=== PATIENT | male | born 1935 | race African-American/Black ===

== ENCOUNTER 2022-05-28 10:13 | Inpatient (IN) | payer BC, MEDICARE ==
[~2022-05-28] VITALS: Ht 185.4 cm; Wt 82.1 kg
[~2022-05-28 10:13] MED LIST: AMLO10TA4 PO; ASPI-1497 PO; CLOP-31 PO; HYDR10TA34 PO; XALAO EACHEYE
[2022-05-28 13:21] LABS: BASOPHILS % 0.5 % (0.0-2.0); EOSINOPHILS % 0.2 % (0.0-5.0); HEMATOCRIT. 38.9 % (42.0-52.0); HEMOGLOBIN. 12.8 g/dL (14.0-18.0); LYMPHOCYTES % 26.2 % (20.0-50.0); MEAN CORPUSCULAR HEMOGLOBIN 30.3 pg (28.0-32.0); MEAN CORPUSCULAR VOLUME 92.1 fL (80.0-94.0); MEAN PLATELET VOLUME 7.8 fl (7.4-10.4); MONOCYTES % 11.7 % (2.0-8.0); NEUTROPHILS % 61.4 % (40.0-76.0); PLATELET 182 x1000/uL (130-400); RED BLOOD CELL COUNT 4.23 mill/uL (4.7-6.1); RED CELL DISTRIBUTION WIDTH 14.2 % (11.6-14.6)
[2022-05-28 15:47] LABS: CHLORIDE 105 mEq/L (98-107)
[2022-05-28] MEDS ORDERED: CALCIUM GLUCONATE 1GM PREMIX 50 ML IV NR (16:15)
[2022-05-28] MEDS ORDERED: CALCIUM GLUCONATE 100MG/ML 10ML VIAL IV ONE (16:15)
[2022-05-28] MEDS ORDERED: SODIUM BICARBONATE 8.4% 1 MEQ/ML 50ML SYR IV NR (16:15)
[2022-05-28] MEDS ORDERED: DEXTROSE 50% WATER 50ML SYRINGE IV NR (16:15)
[2022-05-28] MEDS ORDERED: INSULIN REGULAR (HUMULIN R) 300UNITS/3ML VIAL IV NR (16:15)
[2022-05-28] MEDS: ALBUTEROL (0.083%) 2.5MG/3ML NEB HHN SCH ×2 (17:35→18:47)
[2022-05-28 18:52] LABS: CHLORIDE 108 mEq/L (98-107)
[2022-05-28] MEDS ORDERED: CEFTRIAXONE 1 G PREMIX 50 ML IV SCH (20:00)
[2022-05-28] MEDS ORDERED: IPRATROPIUM/ALBUTEROL 0.5-3(2.5)MG/3ML NEB HHN PRN (20:00)
[2022-05-28] MEDS ORDERED: AZITHROMYCIN 500MG/250ML 250 ML IV NR (20:30)
[2022-05-28] MEDS: SODIUM CHLORIDE 0.45% 1,000 ML IV SCH (20:31)
[2022-05-28] MEDS: ATORVASTATIN CALCIUM 40MG TABLET PO SCH (22:00)
[2022-05-28] MEDS: ENOXAPARIN 30MG/0.3ML SYR SUBCUT SCH (22:00)
[2022-05-28 23:30] VITALS: BP 125/55
[2022-05-29 04:00] VITALS: BP 124/69
[2022-05-29 07:41] LABS: BASOPHILS % 0.3 % (0.0-2.0); EOSINOPHILS % 0.4 % (0.0-5.0); HEMATOCRIT. 36.3 % (42.0-52.0); HEMOGLOBIN. 12.1 g/dL (14.0-18.0); LYMPHOCYTES % 31.1 % (20.0-50.0); MEAN CORPUSCULAR HEMOGLOBIN 30.8 pg (28.0-32.0); MEAN CORPUSCULAR VOLUME 92.5 fL (80.0-94.0); MEAN PLATELET VOLUME 8.2 fl (7.4-10.4); MONOCYTES % 14.2 % (2.0-8.0); PLATELET 174 x1000/uL (130-400); RED BLOOD CELL COUNT 3.92 mill/uL (4.7-6.1)
[2022-05-29 08:00] VITALS: BP 142/72
[2022-05-29 08:29] LABS: CHLORIDE 104 mEq/L (98-107)
[2022-05-29 08:41] LABS: HDL CHOLESTEROL 35 mg/dL (40-59); LDL CHOLESTEROL 26 mg/dL (5-100)
[2022-05-29] MEDS: ASPIRIN 81MG TABLET PO SCH (10:05)
[2022-05-29 12:00] VITALS: BP 136/66
[2022-05-29] MEDS: GUAIFENESIN 200MG/10ML SUGAR FREE UDC PO PRN (12:21)
[2022-05-29] MEDS: SODIUM CHLORIDE 0.45% 1,000 ML IV SCH (14:02)
[2022-05-29 16:00] VITALS: BP 175/77
[2022-05-29] MEDS ORDERED: CLONIDINE 0.1MG TABLET PO PRN (16:15)
[2022-05-29] MEDS: AMLODIPINE 10MG TABLET PO SCH (16:25)
[2022-05-29 20:00] VITALS: BP 131/62
[2022-05-29] MEDS: CEFTRIAXONE 1,000 MG in DEXTROSE 5% WATER 50 ML IV SCH (20:17)
[2022-05-29] MEDS: ATORVASTATIN CALCIUM 40MG TABLET PO SCH (20:53)
[2022-05-29] MEDS: AZITHROMYCIN 500 MG in DEXT 5% WATER 250 ML IV SCH (20:53)
[2022-05-29] MEDS: ENOXAPARIN 30MG/0.3ML SYR SUBCUT SCH (20:53)
[2022-05-29] MEDS ORDERED: AZITHROMYCIN 500 MG in DEXT 5% WATER 250 ML IV SCH (21:00)
[2022-05-30] VITALS: BP 130/62
[2022-05-30] MEDS: GUAIFENESIN 200MG/10ML SUGAR FREE UDC PO PRN ×2 (02:39→17:02)
[2022-05-30 04:00] VITALS: BP 136/71
[2022-05-30] MEDS: SODIUM CHLORIDE 0.45% 1,000 ML IV SCH ×2 (04:57→09:15)
[2022-05-30 08:00] VITALS: BP 131/62
[2022-05-30] MEDS: ASPIRIN 81MG TABLET PO SCH (09:14)
[2022-05-30] MEDS: AMLODIPINE 10MG TABLET PO SCH (09:14)
[2022-05-30 12:00] VITALS: BP 133/68
[2022-05-30 12:59] LABS: BASOPHILS % 0.2 % (0.0-2.0); EOSINOPHILS % 0.9 % (0.0-5.0); HEMATOCRIT. 34.1 % (42.0-52.0); HEMOGLOBIN. 11.3 g/dL (14.0-18.0); LYMPHOCYTES % 23.3 % (20.0-50.0); MEAN CORPUSCULAR HEMOGLOBIN 30.8 pg (28.0-32.0); MEAN CORPUSCULAR VOLUME 92.6 fL (80.0-94.0); MEAN PLATELET VOLUME 8.2 fl (7.4-10.4); MONOCYTES % 14.3 % (2.0-8.0); NEUTROPHILS % 61.3 % (40.0-76.0); PLATELET 197 x1000/uL (130-400); RED BLOOD CELL COUNT 3.68 mill/uL (4.7-6.1); RED CELL DISTRIBUTION WIDTH 14.1 % (11.6-14.6)
[2022-05-30 13:06] LABS: CHLORIDE 104 mEq/L (98-107)
[2022-05-30 16:00] VITALS: BP 107/71
[2022-05-30 20:00] VITALS: BP 142/70
[2022-05-30] MEDS: CEFTRIAXONE 1,000 MG in DEXTROSE 5% WATER 50 ML IV SCH (20:17)
[2022-05-30] MEDS: AZITHROMYCIN 500 MG in DEXT 5% WATER 250 ML IV SCH (21:47)
[2022-05-30] MEDS: ATORVASTATIN CALCIUM 40MG TABLET PO SCH (21:47)
[2022-05-30] MEDS: ENOXAPARIN 30MG/0.3ML SYR SUBCUT SCH (21:47)
[2022-05-31] VITALS: BP 125/71
[2022-05-31 03:59] VITALS: BP 136/75
[2022-05-31 08:00] VITALS: BP 132/72
[2022-05-31] MEDS: AMLODIPINE 10MG TABLET PO SCH (08:49)
[2022-05-31] MEDS: ASPIRIN 81MG TABLET PO SCH (08:49)
[2022-05-31 12:00] VITALS: BP 132/70
[2022-05-31] MEDS ORDERED: AZIT500T3 MT (12:01)
[2022-05-31 13:23] VITALS: BP_SYST 132; BP_SYST 135; BP_DIAS 65; BP_DIAS 70
[2022-05-31] MEDS: SODIUM CHLORIDE 0.45% 1,000 ML IV SCH (15:47)
[2022-05-31 16:00] VITALS: BP 135/65
[2022-05-31] MEDS ORDERED: AZITHROMYCIN 500 MG TABLET PO SCH (21:00)
== END 2022-05-31 17:50 | disposition home or self-care (01) | DRG 177 ==
LOC: ER 10:29 → EDBEDREQ 18:06 → EDBEDREQTM 18:06 → EDBEDREQ 18:35 → 7EST 19:24
PROVIDERS: ADMIT Family Medicine; ATTEND Family Medicine
DX: U07.1 COVID-19 (principal); E43 Unspecified severe protein-calorie malnutrition; J12.82 Pneumonia due to coronavirus disease 2019; N17.9 Acute kidney failure, unspecified; D64.9 Anemia, unspecified; E11.9 Type 2 diabetes mellitus without complications; E87.5 Hyperkalemia; H40.9 Unspecified glaucoma; E86.0 Dehydration; I10 Essential (primary) hypertension; J45.909 Unspecified asthma, uncomplicated; I25.10 Atherosclerotic heart disease of native coronary artery without angina pectoris; Z95.1 Presence of aortocoronary bypass graft; Z79.899 Other long term (current) drug therapy; Z68.23 Body mass index [BMI] 23.0-23.9, adult
CPT/HCPCS: 36415; 71045; 76770; 80053; 80061; 83880; 84145; 84484; 85025; 87426; 93005; 99285; C9803; J0456; J0610; J0696; J1650; J1815; J3490; J7060

== ENCOUNTER 2022-07-26 19:37 | Emergency (ER) | payer MEDICARE ==
[~2022-07-26] VITALS: Ht 188 cm; Wt 87.0 kg
[~2022-07-26 19:37] MED LIST changes: +AZIT500T3 MT
[2022-07-26] MEDS ORDERED: MECLIZINE 25MG TABLET PO STA (19:50)
[2022-07-26] MEDS ORDERED: SODIUM CHLORIDE 0.9% 1,000 ML IV ONE (20:00)
[2022-07-26 20:32] LABS: EOSINOPHILS % 0.5 % (0.0-5.0); HEMATOCRIT. 35.4 % (42.0-52.0); HEMOGLOBIN. 11.7 g/dL (14.0-18.0); LYMPHOCYTES % 17.3 % (20.0-50.0); MEAN CORPUSCULAR HEMOGLOBIN 29.6 pg (28.0-32.0); MEAN CORPUSCULAR VOLUME 89.4 fL (80.0-94.0); MEAN PLATELET VOLUME 6.6 fl (7.4-10.4); MONOCYTES % 5.5 % (2.0-8.0); NEUTROPHILS % 75.7 % (40.0-76.0); PLATELET 440 x1000/uL (130-400); RED BLOOD CELL COUNT 3.96 mill/uL (4.7-6.1); RED CELL DISTRIBUTION WIDTH 15.2 % (11.6-14.6)
[2022-07-26 20:40] LABS: CHLORIDE 104 mEq/L (98-107)
[2022-07-26] MEDS: MECLIZINE 25MG TABLET PO NR ×2 (22:39→22:40)
[2022-07-26] MEDS ORDERED: MECL-217 MT (23:20)
[2022-07-27 00:12] VITALS: BP 162/74
== END 2022-07-27 00:16 | disposition home or self-care (01) ==
LOC: ER 19:37
DX: R42 Dizziness and giddiness (principal); I10 Essential (primary) hypertension; Z79.82 Long term (current) use of aspirin
CPT/HCPCS: 36415; 71045; 80053; 82962; 83880; 84484; 85025; 96360; 99284; J7030; J8597

== ENCOUNTER 2022-08-02 14:24 | Emergency (ER) | payer MEDICARE ==
[~2022-08-02] VITALS: Ht 185.4 cm; Wt 91.0 kg
[~2022-08-02 14:24] MED LIST changes: +MECL-217 MT
[2022-08-02 14:29] VITALS: BP 153/70
[2022-08-02] MEDS ORDERED: IBUPROFEN 400MG TABLET PO ONE (18:30)
[2022-08-02] MEDS ORDERED: FLUORESCEIN SODIUM 1MG/STRIP RIGHTEYE ONE (20:30)
[2022-08-02] MEDS ORDERED: TETRACAINE 0.5% OPHTH DROPS 4ML RIGHTEYE ONE (20:30)
[2022-08-02] MEDS ORDERED: IBUP-2028 MT (20:31)
== END 2022-08-02 21:20 | disposition home or self-care (01) ==
LOC: ER 14:24
DX: H57.11 Ocular pain, right eye (principal); W18.39XA Other fall on same level, initial encounter; Y93.89 Activity, other specified; Y92.89 Other specified places as the place of occurrence of the external cause; Y99.8 Other external cause status; J45.909 Unspecified asthma, uncomplicated; I10 Essential (primary) hypertension; Z79.899 Other long term (current) drug therapy
CPT/HCPCS: 70480; 99284